=== PATIENT | female | born 1945 | race Hispanic/Latino ===

== ENCOUNTER 2016-11-15 14:41 | Emergency (ER) | payer OTHER ==
[~2016-11-15] VITALS: Ht 142.2 cm; Wt 58.5 kg
[2016-11-15 17:17] LABS: HEMATOCRIT 32.5 % (36.0-46.0); MCH 30.2 PG (29.0-34.0); MCHC 35.1 G/DL (30.0-36.0); MCV 86.2 FL (83-99); MEAN PLAT.VOLUME 9.2 uM^3 (9.5-12.4); PLATELET COUNT 276 K/uL (156-360); RBC DIS.WIDTH-CV 12.2 % (11.8-14.6); RBC DIS.WIDTH-SD 38.6 % (39-53); RED BLOOD COUNT 3.77 M/uL (3.80-5.20); WHITE BLOOD COUNT 7.6 K/uL (4.1-10.2)
[2016-11-15 17:27] LABS: ADD MIUA? YES; BILIRUBIN NEGATIVE; BLOOD NEGATIVE; COLOR STRAW ((YELLOW)); GLUCOSE (STRIP) 50; KETONES NEGATIVE; LEUKOCYTES TRACE; NITRITE NEGATIVE; PROTEIN (STRIP) >=500; SPECIFIC GRAVITY 1.005 (1.000-1.030); UROBILINOGEN 0.2 MG/DL (0.2-1.0)
[2016-11-15 17:27] LABS: CHLORIDE 106 mEq/L (99-109); POTASSIUM 4.4 mEq/L (3.7-5.4); SODIUM 140 mEq/L (136-147)
[2016-11-15 17:29] LABS: GLUCOSE 155 mg/dL (70-99)
[2016-11-15 17:30] LABS: BACTERIA NONE SEEN /HPF; EPITHELIAL CELLS 1+ /HPF; MUCUS NONE SEEN /LPF; RED BLOOD CELLS 0-5 /HPF (0-5); UCUL ADDED? NO; WHITE BLOOD CELLS 0-5 /HPF (0-5)
[2016-11-15 17:30] LABS: ANION GAP 10 MEQ/L (2-14)
[2016-11-15 17:31] LABS: TOTAL BILIRUBIN 0.3 mg/dL (0.0-1.0)
[2016-11-15 17:32] LABS: ALKALINE PHOSPHATASE 128 IU/L (3-129)
[2016-11-15 17:33] LABS: GFR ESTIMATE (CALCULATED) 14 mL/min/
[2016-11-15 17:34] LABS: UREA NITROGEN (BUN) 39 mg/dL (9-23)
[2016-11-15] MEDS ORDERED: CLONIDINE HCL0.1 MG PO (19:46)
[2016-11-15] MEDS ORDERED: LANTUS 10100 UNITS/ SC (19:46)
[2016-11-15] MEDS ORDERED: CALCITRIOL0.25 MCG PO (19:46)
[2016-11-15] MEDS ORDERED: NEXIUM40 MG PO (19:47)
[2016-11-15] MEDS ORDERED: LISINOPRIL20 MG PO (19:47)
[2016-11-15] MEDS ORDERED: NOVOLOG PE100 UNITS/ SC (19:47)
[2016-11-15] MEDS ORDERED: VITAMIN D31000 UNIT PO (19:48)
[2016-11-15] MEDS ORDERED: SIMVASTATIN20 MG PO (19:48)
[2016-11-15] MEDS ORDERED: PROCARDIA XL30 MG PO (19:48)
[2016-11-16] MEDS ORDERED: CATAPRES0.2 MG PO (00:22)
[2016-11-16 00:33] VITALS: BP 166/67
== END 2016-11-16 00:35 | disposition home or self-care (01) ==
LOC: EME 14:41
PROVIDERS: Physician Assistant
DX: R10.9 Unspecified abdominal pain (principal); M54.5 Low back pain; M79.89 Other specified soft tissue disorders; R51 Headache; M79.671 Pain in right foot; M79.672 Pain in left foot; R41.0 Disorientation, unspecified; R05 Cough; R07.9 Chest pain, unspecified; R06.02 Shortness of breath; I12.9 Hypertensive chronic kidney disease with stage 1 through stage 4 chronic kidney disease, or unspecified chronic kidney disease; E11.22 Type 2 diabetes mellitus with diabetic chronic kidney disease; N18.4 Chronic kidney disease, stage 4 (severe); Z79.4 Long term (current) use of insulin; E78.5 Hyperlipidemia, unspecified
CPT/HCPCS: 70450; 71020; 80053; 81003; 83880; 85027; 99281; 99285; J7030

== ENCOUNTER → 2017-01-25 | Day surgery (SDC) | payer OTHER ==
[~2017-01-25] VITALS: Ht 142.2 cm; Wt 56.2 kg
[~2017-01-25] MED LIST: CALCITRIOL0.25 MCG PO; CATAPRES0.2 MG PO; CLONIDINE HCL0.1 MG PO; LANTUS 10100 UNITS/ SC; LISINOPRIL20 MG PO; NEXIUM40 MG PO; NOVOLOG PE100 UNITS/ SC; PROCARDIA XL30 MG PO; SIMVASTATIN20 MG PO; SINGULAIR10 MG PO; VENTOLIN HFA18 GM IH; VITAMIN D31000 UNIT PO; ZOLOFT25 MG PO
[2017-01-25 10:31] LABS: HEMATOCRIT 33.6 % (36.0-46.0); MCH 29.7 PG (29.0-34.0); MCV 89.8 FL (83-99); MEAN PLAT.VOLUME 9.1 uM^3 (9.5-12.4); PLATELET COUNT 329 K/uL (156-360); RBC DIS.WIDTH-SD 39.6 % (39-53); RED BLOOD COUNT 3.74 M/uL (3.80-5.20); WHITE BLOOD COUNT 7.5 K/uL (4.1-10.2)
[2017-01-25 10:39] LABS: POINT-OF-CARE METER ID UU14174212
[2017-01-25 10:53] VITALS: BP 163/72
[2017-01-25 10:54] LABS: ANION GAP 10 MEQ/L (2-14); CHLORIDE 105 MEQ/L (99-109); POTASSIUM 4.6 MEQ/L (3.7-5.4); SAMPLE HEMOLYSIS CHECK 0; SAMPLE ICTERIC CHECK 0; SAMPLE LIPEMIA CHECK 0; SODIUM 142 MEQ/L (136-147)
[2017-01-25 10:59] LABS: GFR ESTIMATE (CALCULATED) 15 mL/min/; GLUCOSE 104 mg/dL (70-99); UREA NITROGEN (BUN) 42 mg/dL (9-23)
== END | disposition home or self-care (01) ==
LOC: SDC 09:20
PROVIDERS: Surgery
DX: N18.6 End stage renal disease (principal); Z53.8 Procedure and treatment not carried out for other reasons
CPT/HCPCS: 80048; 82948; 85027; 93005

== ENCOUNTER 2017-07-26 19:16 | Emergency (ER) | payer OTHER ==
[~2017-07-26] VITALS: Ht 144.8 cm; Wt 54.8 kg
[~2017-07-26 19:16] MED LIST changes: +HUMALOG100 UNIT/2 SC
[2017-07-26 20:10] LABS: HEMOGLOBIN 11.2 G/DL (11.9-15.5); MCH 31.2 PG (29.0-34.0); MCV 89.1 FL (83-99); PLATELET COUNT 322 K/uL (156-360); RBC DIS.WIDTH-CV 12.2 % (11.8-14.6); RBC DIS.WIDTH-SD 39.8 % (39-53); RED BLOOD COUNT 3.59 M/uL (3.80-5.20)
[2017-07-26 20:18] LABS: APPEARANCE CLEAR ((CLEAR)); BILIRUBIN NEGATIVE; BLOOD NEGATIVE; COLOR YELLOW ((YELLOW)); GLUCOSE (STRIP) >=500; KETONES NEGATIVE; LEUKOCYTES NEGATIVE; NITRITE NEGATIVE; PROTEIN (STRIP) >=500; SPECIFIC GRAVITY 1.014 (1.000-1.030); UROBILINOGEN 0.2 MG/DL (0.2-1.0)
[2017-07-26 20:19] LABS: ALBUMIN 4.6 g/dL (3.2-4.8); CHLORIDE 106 mEq/L (99-109); POTASSIUM 5.4 mEq/L (3.7-5.4); SODIUM 141 mEq/L (136-147)
[2017-07-26 20:22] LABS: GLUCOSE 247 mg/dL (70-99); TOTAL PROTEIN 7.7 g/dL (6.4-8.3)
[2017-07-26 20:23] LABS: BACTERIA RARE /HPF; EPITHELIAL CELLS 1+ /HPF; MUCUS TRACE /LPF; RED BLOOD CELLS 0-5 /HPF (0-5); UCUL ADDED? NO; WHITE BLOOD CELLS 0-5 /HPF (0-5)
[2017-07-26 20:23] LABS: TOTAL BILIRUBIN 0.3 mg/dL (0.0-1.0)
[2017-07-26 20:25] LABS: ALKALINE PHOSPHATASE 77 IU/L (3-129); CREATININE 4.7 mg/dL (0.6-1.3); GFR ESTIMATE (CALCULATED) 10 mL/min/
[2017-07-26 20:26] LABS: UREA NITROGEN (BUN) 38 mg/dL (9-23)
[2017-07-26 20:27] LABS: AST (GOT) 25 IU/L (2-34)
[2017-07-26 20:28] LABS: ALT (GPT) 16 IU/L (3-49)
[2017-07-26 23:45] LABS: LIPASE 48 U/L (1.0-51.0)
[2017-07-27 02:58] VITALS: BP 182/88
== END 2017-07-27 02:59 | disposition home or self-care (01) ==
LOC: EME 19:16
PROVIDERS: Emergency Medicine
DX: K59.00 Constipation, unspecified (principal); E11.22 Type 2 diabetes mellitus with diabetic chronic kidney disease; N18.9 Chronic kidney disease, unspecified; M79.602 Pain in left arm; M79.89 Other specified soft tissue disorders; Z99.2 Dependence on renal dialysis; J45.909 Unspecified asthma, uncomplicated; E78.5 Hyperlipidemia, unspecified; F41.9 Anxiety disorder, unspecified; F32.9 Major depressive disorder, single episode, unspecified; Z90.49 Acquired absence of other specified parts of digestive tract; Z79.4 Long term (current) use of insulin
CPT/HCPCS: 74176; 80053; 81003; 82948; 83690; 85027; 87340; 93971; J1200; J2765; J7040

== ENCOUNTER 2017-07-28 11:10 | Inpatient (IN) | payer OTHER ==
[~2017-07-28] VITALS: Ht 152.4 cm; Wt 53.0 kg
[2017-07-28 12:51] LABS: CHLORIDE 106 mEq/L (99-109); POTASSIUM 4.4 mEq/L (3.7-5.4); SODIUM 143 mEq/L (136-147)
[2017-07-28 12:53] LABS: GLUCOSE 316 mg/dL (70-99)
[2017-07-28 12:57] LABS: CREATININE 4.3 mg/dL (0.6-1.3); GFR ESTIMATE (CALCULATED) 11 mL/min/; UREA NITROGEN (BUN) 32 mg/dL (9-23)
[2017-07-28 13:23] LABS: HEPATITIS B SURFACE ANTIGEN Nonreactive; HEPATITIS C ANTIBODY Nonreactive
[2017-07-28 13:24] LABS: ANTI-HEPATITIS A VIRUS (IGM) Nonreactive
[2017-07-28 13:25] LABS: ANTI-HEPATITIS B CORE (IGM) Nonreactive
[2017-07-28 20:00] VITALS: BP 182/74
[2017-07-28 23:56] VITALS: BP 147/74
[2017-07-29 03:56] VITALS: BP 144/65
[2017-07-29 05:53] LABS: BASOPHIL (%) 0.4 % (0-1); EOSINOPHIL COUNT 0.1 K/uL (0-0.3); HEMATOCRIT 31.2 % (36.0-46.0); HEMOGLOBIN 10.5 G/DL (11.9-15.5); IMMATURE GRANULOCYTE (%) 0.3 % (0.0-0.7); LYMPHOCYTE (%) 34.9 % (15-42); LYMPHOCYTE COUNT 2.4 K/uL (1.0-2.8); MCH 30.2 PG (29.0-34.0); MCHC 33.7 G/DL (30.0-36.0); MCV 89.7 FL (83-99); MONOCYTE (%) 5.7 % (3-12); MONOCYTE COUNT 0.4 K/uL (0-0.8); NEUTROPHIL (%) 56.7 % (45-76); NEUTROPHIL COUNT 3.9 K/uL (1.8-6.4); PLATELET COUNT 283 K/uL (156-360); RBC DIS.WIDTH-CV 12.3 % (11.8-14.6); RED BLOOD COUNT 3.48 M/uL (3.80-5.20)
[2017-07-29 06:19] LABS: CHLORIDE 107 MEQ/L (99-109); GLUCOSE 180 mg/dL (70-99); SODIUM 143 MEQ/L (136-147); UREA NITROGEN (BUN) 17 mg/dL (9-23)
[2017-07-29 06:20] LABS: CREATININE 3.3 MG/DL (0.6-1.3); GFR ESTIMATE (CALCULATED) 15 mL/min/
[2017-07-29 07:25] VITALS: BP 159/65
[2017-07-29 08:19] LABS: HEMOGLOBIN A1c (GLYCOHEMOGLOB) 6.6 % (Below 5.7)
[2017-07-29 10:45] VITALS: BP 164/67
[2017-07-29 16:10] VITALS: BP 128/55
[2017-07-29 16:57] VITALS: BP 123/58
[2017-07-29 19:53] VITALS: BP 147/65
[2017-07-30] VITALS (7 sets, daily range): BP systolic 125–153; BP diastolic 60–82
[2017-07-30 08:31] LABS: HEMATOCRIT 30.6 % (36.0-46.0); HEMOGLOBIN 10.7 G/DL (11.9-15.5); MCH 31.2 PG (29.0-34.0); MCV 89.2 FL (83-99); PLATELET COUNT 270 K/uL (156-360); RBC DIS.WIDTH-SD 38.5 % (39-53); RED BLOOD COUNT 3.43 M/uL (3.80-5.20); WHITE BLOOD COUNT 7.9 K/uL (4.1-10.2)
[2017-07-30 10:34] LABS: ALBUMIN 3.7 G/DL (3.2-4.8); CHLORIDE 101 MEQ/L (99-109); GFR ESTIMATE (CALCULATED) 11 mL/min/; GLUCOSE 121 mg/dL (70-99); PHOSPHORUS 2.7 mg/dL (2.5-4.9); POTASSIUM 4.2 MEQ/L (3.7-5.4); SODIUM 138 MEQ/L (136-147); UREA NITROGEN (BUN) 17 mg/dL (9-23)
[2017-07-30 10:35] LABS: CREATININE 4.1 MG/DL (0.6-1.3)
[2017-07-30 12:25] LABS: HEPATITIS B SURFACE ANTIBODY Nonreactive
[2017-07-31 04:16] VITALS: BP 156/67
[2017-07-31 06:06] LABS: HEMATOCRIT 30.2 % (36.0-46.0); HEMOGLOBIN 10.8 G/DL (11.9-15.5); MCH 31.3 PG (29.0-34.0); MCHC 35.8 G/DL (30.0-36.0); MCV 87.5 FL (83-99); PLATELET COUNT 284 K/uL (156-360); RBC DIS.WIDTH-CV 11.9 % (11.8-14.6); RBC DIS.WIDTH-SD 38.3 % (39-53); RED BLOOD COUNT 3.45 M/uL (3.80-5.20); WHITE BLOOD COUNT 9.5 K/uL (4.1-10.2)
[2017-07-31 06:54] LABS: ALBUMIN 3.6 G/DL (3.2-4.8); CHLORIDE 102 MEQ/L (99-109); SODIUM 140 MEQ/L (136-147); UREA NITROGEN (BUN) 23 mg/dL (9-23)
[2017-07-31 06:55] LABS: CREATININE 4.8 MG/DL (0.6-1.3); GFR ESTIMATE (CALCULATED) 10 mL/min/; POTASSIUM 3.3 MEQ/L (3.7-5.4)
[2017-07-31 07:18] VITALS: BP 154/52
[2017-07-31 08:29] LABS: GLUCOSE 52 mg/dL (70-99)
== END 2017-07-31 14:14 | disposition home health service (06) | DRG 682 ==
LOC: EME 11:10 → 5SOUTH 13:24 → EDOF 13:24 → ENRESERV 13:45 → EDOF 13:50 → ENRESERV 14:08 → 4EAST 18:55 → ENRESERV 07-29 15:34 → 5SOUTH 07-29 16:39
PROVIDERS: Hospitalist; Internal Medicine; Internal Medicine Nephrology; Physician Assistant Medical
DX: I12.0 Hypertensive chronic kidney disease with stage 5 chronic kidney disease or end stage renal disease (principal); N18.6 End stage renal disease; I16.0 Hypertensive urgency; E78.5 Hyperlipidemia, unspecified; E11.22 Type 2 diabetes mellitus with diabetic chronic kidney disease; I25.9 Chronic ischemic heart disease, unspecified; J45.909 Unspecified asthma, uncomplicated; K59.00 Constipation, unspecified; D63.1 Anemia in chronic kidney disease; K21.9 Gastro-esophageal reflux disease without esophagitis; Z90.49 Acquired absence of other specified parts of digestive tract; Z79.4 Long term (current) use of insulin; Z99.2 Dependence on renal dialysis; Z79.899 Other long term (current) drug therapy; Z83.3 Family history of diabetes mellitus; Z82.49 Family history of ischemic heart disease and other diseases of the circulatory system
CPT/HCPCS: 70450; 71045; 74176; 80048; 80053; 80069; 80074; 81003; 82948; 83036; 83690; 85025; 85027; 86706; 87340; 93971; 99281; 99285; J1200; J1644; J1815; J2765; J3480; J7040

== ENCOUNTER 2017-11-30 07:40 | Day surgery (SDC) | payer OTHER ==
[~2017-11-30] VITALS: Ht 147.3 cm; Wt 49.0 kg
[~2017-11-30 07:40] MED LIST changes: +HYDRALAZINE HCL25 MG PO; +LINZESS72 MCG PO; +MIRTAZAPINE15 MG PO; +PANTOPRAZOLE SO40 MG PO; +ZOLOFT100 MG PO; -ZOLOFT25 MG PO
[2017-11-30] MEDS ORDERED: KRISTALOSE20 GM PO (08:04)
[2017-11-30] MEDS ORDERED: NEXIUM40 MG PO (08:05)
[2017-11-30] MEDS ORDERED: PROCARDIA XL30 MG PO (08:06)
[2017-11-30] MEDS ORDERED: NOVOLOG PE100 UNITS/ SC (08:06)
== END 2017-11-30 10:12 | disposition home or self-care (01) ==
LOC: CATH 07:40
PROVIDERS: Surgery
PROC: B54NZZA Ultrasonography of Left Upper Extremity Veins, Guidance (ICD-10-PCS; principal; 2017-11-30)
DX: T82.41XA Breakdown (mechanical) of vascular dialysis catheter, initial encounter (principal); Y83.2 Surgical operation with anastomosis, bypass or graft as the cause of abnormal reaction of the patient, or of later complication, without mention of misadventure at the time of the procedure; I12.0 Hypertensive chronic kidney disease with stage 5 chronic kidney disease or end stage renal disease; E11.22 Type 2 diabetes mellitus with diabetic chronic kidney disease; N18.6 End stage renal disease; Z99.2 Dependence on renal dialysis; Z79.4 Long term (current) use of insulin; E78.00 Pure hypercholesterolemia, unspecified
CPT/HCPCS: 82948; 87641; C1894; J1200; J1644; J2250; J2930; J3010; S0028